=== PATIENT | male | born 1995 | race Caucasian/White ===

== ENCOUNTER 2018-02-02 23:27 | Emergency (ER) | payer OTHER ==
[2018-02-02 23:38] VITALS: BP 135/93; PULSE 98; TEMP 100.3
[2018-02-02] MEDS ORDERED: IBUPROFEN 600 MG TABLET (FP) PO ONE (23:46)
--- NOTE | 2018-02-02 23:52 | PDOC ---
History of Present Illness - General Chief Complaint: Cold Symptoms Stated Complaint: COLD SYMPTOMS Time Seen by Provider: 02/02/18 23:40 History Source: Patient Exam Limitations: No Limitations - History of Present Illness Initial Comments: 02/02/18 23:46 22-year-old male without significant past medical history presents emergency Department with 3 days of fevers, sore throat and body aches. Patient states she 's been taking [id number] medications with minimal relief of symptoms. Patient states his last dose of any medication was DayQuil this morning. Patient denies any coughing, chest pain, shortness of breath, abdominal pain, nausea, vomiting. Past History - Past Medical History Allergies/Adverse Reactions: Allergies Allergy/AdvReac Type Severity Reaction Status Date / Time No Known Allergies Allergy Verified 02/02/18 23:36 Home Medications: Ambulatory Orders NK [No Known Home Medication] 04/27/15 - Immunization History Immunization Up to Date: Yes - Suicide/Smoking/Psychosocial Hx Smoking History: Never smoked Have you smoked in the past 12 months: No Information on smoking cessation initiated: No Hx Alcohol Use: No Drug/Substance Use Hx: No Substance Use Type: None Review of Systems - Review of Systems Able to Perform ROS?: Yes Is the patient limited [place] proficient: No Constitutional: Yes: See HPI HEENTM: Yes: See HPI Respiratory: No: Symptoms reported Cardiac (ROS): No: Symptoms Reported ABD/GI: No: Symptoms Reported : No: Symptoms Reported Musculoskeletal: Yes: See HPI Integumentary: No: Symptoms Reported Neurological: No: Symptoms reported *Physical Exam - Vital Signs Last Vital Signs Temp Pulse Resp BP Pulse Ox 100.3 F H 98 H 20 135/93 99 02/02/18 23:36 02/02/18 23:36 02/02/18 23:36 02/02/18 23:36 02/02/18 23:36 - Physical Exam General Appearance: Yes: Appropriately Dressed. No: Apparent Distress HEENT: positive: EOMI, ADIS, Normal Voice, TMs Normal, Pharyngeal Erythema, Tonsillar Erythema Neck: positive: Trachea midline, Supple Respiratory/Chest: positive: Lungs Clear, Normal Breath Sounds. negative: Respiratory Distress, Accessory Muscle Use Cardiovascular: positive: Regular Rhythm, Regular Rate. negative: Murmur Gastrointestinal/Abdominal: positive: Normal Bowel Sounds, Soft. negative: Tender Neurologic: positive: Alert, Normal Response Medical Decision Making - Medical Decision Making 02/02/18 23:50 A/P: 22-year-old male with 3 days of upper respiratory symptoms Oropharynx with tonsillar erythema present. No exudates noted Cobblestoning noted in the posterior oropharynx No anterior or posterior cervical lymphadenopathy present Lungs clear to auscultation bilaterally Most likely this a viral pharyngitis. I will send rapid strep to rule out bacterial etiology. Motrin Reassess 02/03/18 00:17 Rapid strep testing is negative. I will discharge the patient home with some the medic treatment for a viral pharyngitis. I discussed the physical exam findings, ancillary test results and final diagnoses with the patient. I answered all of the patient's questions. The patient was satisfied with the care received and felt comfortable with the discharge plan and treatment plan. The patient will call his doctor within 96 hours to arrange follow-up and will return to the Emergency Department with any new, persistent or worsening symptoms. *DC/Admit/Observation/Transfer Diagnosis at time of Disposition: Pharyngitis Qualifiers: Pharyngitis/tonsillitis etiology: unspecified etiology Qualified Code(s): J02.9 - Acute pharyngitis, unspecified - Discharge Dispostion Disposition: HOME Condition at time of disposition: Stable Decision to Admit order: No - Referrals - Patient Instructions Additional Instructions: Rest, drink lots of fluids: Teas, water, soups, Pedialyte Saltwater gargles Steamy showers/seem to face break up mucus Avoid contact with others until fevers and cough resolved Lots of handwashing and good hygiene Continue [id number] medications for symptomatic relief Tylenol or Motrin for fever and pain Followup with private physician in one to 2 days as needed Return to emergency department for worsened symptoms, fevers, dehydration - Post Discharge Activity
[2018-02-03] MEDS ORDERED: IBUPROFEN 600 MG TABLET (FP) PO ONE (00:26)
== END 2018-02-03 00:31 | disposition home or self-care (01) ==
LOC: JER 23:27
DX: J02.9 Acute pharyngitis, unspecified (principal)
CPT/HCPCS: 87070; 87430; 99281-25; 99282-25

== ENCOUNTER 2018-06-14 20:55 | Emergency (ER) | payer OTHER ==
[2018-06-14 21:19] VITALS: BP 107/74; PULSE 132; TEMP 99.4; BMI 32.9
[2018-06-14] MEDS ORDERED: ACETAMINOPHEN 500 MG TABLET (FP) PO ONE (21:56)
[2018-06-14] MEDS ORDERED: ACETAMINOPHEN 500 MG TABLET (FP) ONE (21:59)
--- NOTE | 2018-06-14 22:30 | PDOC ---
History of Present Illness - General Chief Complaint: Cold Symptoms Stated Complaint: fever Time Seen by Provider: 06/14/18 21:53 - History of Present Illness Initial Comments: 06/14/18 22:29 23-year-old male without comorbidities presents for evaluation of fever and body aches times one day. He states symptoms started last night. He has not taken anything for his body aches or subjective fever. Past History - Past Medical History Allergies/Adverse Reactions: Allergies Allergy/AdvReac Type Severity Reaction Status Date / Time No Known Allergies Allergy Verified 06/14/18 21:19 Home Medications: Ambulatory Orders NK [No Known Home Medication] 04/27/15 COPD: No - Immunization History Immunization Up to Date: Yes - Suicide/Smoking/Psychosocial Hx Smoking History: Never smoked Have you smoked in the past 12 months: No Information on smoking cessation initiated: No Hx Alcohol Use: No Drug/Substance Use Hx: No Substance Use Type: None Review of Systems - Review of Systems Constitutional: Yes: Fever, Malaise All Other Systems: Reviewed and Negative *Physical Exam - Vital Signs Last Vital Signs Temp Pulse Resp BP Pulse Ox 99.4 F 132 H 16 107/74 100 06/14/18 21:17 06/14/18 21:17 06/14/18 21:17 06/14/18 21:17 06/14/18 21:17 - Physical Exam Comments: 06/14/18 22:30 HEAD: NC/AT EYES: Conjuntiva clear Ears: Canals and TM's normal NOSE: No d/c THROAT: Moist mucous membrances, oral pharanx clear, uvula midline NECK: Supple without adenopathy CARDIAC: S1 S2 LUNGS: CTA Full and Equal breath sounds ABDOMEN: Soft NT ND MS: Full ROM in all joints without edema NEUROLOGIC: No gross sensory or motor deficits, NVID SKIN: Normal color and temperature no lesions or rashes ED Treatment Course - Medications Given in the ED: ED Medications Discontinued Medications Generic Name Dose Route Start Last Admin Trade Name Vladislavq PRN Reason Stop Dose Admin Acetaminophen 1,000 mg 06/14/18 21:56 06/14/18 22:00 Tylenol - PO 06/14/18 21:57 1,000 mg ONCE ONE Administration *DC/Admit/Observation/Transfer Diagnosis at time of Disposition: Viral illness - Discharge Dispostion Disposition: HOME Condition at time of disposition: Stable Decision to Admit order: No - Referrals Referrals: Wade Norris MD [Primary Care Provider] - - Patient Instructions Printed Discharge Instructions: DI for Viral Upper Respiratory Infection -- Adult Additional Instructions: Return to the emergency room should symptoms worsen ago unresolved. Please take Tylenol and Motrin as directed for pain and fever follow-up with your primary care physician in one to 2 days for further evaluation and treatment options. - Post Discharge Activity
== END 2018-06-14 23:01 | disposition home or self-care (01) ==
LOC: JERFT 20:55
DX: J06.9 Acute upper respiratory infection, unspecified (principal); B97.89 Other viral agents as the cause of diseases classified elsewhere
CPT/HCPCS: 87804; 99281-25

== ENCOUNTER 2018-11-28 20:44 | Emergency (ER) | payer OTHER ==
[2018-11-28 20:54] VITALS: BP 124/82; PULSE 74; TEMP 99; BMI 31.3
--- NOTE | 2018-11-28 22:25 | PDOC ---
History of Present Illness - General Chief Complaint: Poison [place],Poison [place] Exposure Stated Complaint: POISON [place] OVER BODY Time Seen by Provider: 11/28/18 21:46 - History of Present Illness Initial Comments: 11/28/18 22:23 23-year-old male without comorbidities presents for evaluation of an itchy rash on bilateral forearms and the right side of his belly unrelieved by calamine lotion over the last 5 days. No systemic symptoms. He states he was exposed to poison mart[place]. Past History - Past Medical History Allergies/Adverse Reactions: Allergies Allergy/AdvReac Type Severity Reaction Status Date / Time No Known Allergies Allergy Verified 06/14/18 21:19 Home Medications: Ambulatory Orders Methylprednisolone [Medrol Dose Bony] 4 mg PO ASDIR #21 tablet 11/28/18 Mometasone Furoate [Elocon] 15 gm TP BID #1 cream..g. 11/28/18 COPD: No - Immunization History Immunization Up to Date: Yes - Suicide/Smoking/Psychosocial Hx Smoking History: Never smoked Have you smoked in the past 12 months: No Hx Alcohol Use: No Drug/Substance Use Hx: No Substance Use Type: None Review of Systems - Review of Systems Constitutional: No: Fever HEENTM: No: Throat Swelling Integumentary: Yes: Pruritus, Rash *Physical Exam - Vital Signs Last Vital Signs Temp Pulse Resp BP Pulse Ox 99 F 74 20 124/82 100 11/28/18 20:52 11/28/18 20:52 11/28/18 20:52 11/28/18 20:52 11/28/18 20:52 - Physical Exam Comments: 11/28/18 22:23 HEAD: NC/AT EYES: Conjuntiva clear Ears: Canals and TM's normal NOSE: No d/c THROAT: Moist mucous membrances, oral pharanx clear, uvula midline NECK: Supple without adenopathy CARDIAC: S1 S2 LUNGS: CTA Full and Equal breath sounds ABDOMEN: Soft NT ND MS: Full ROM in all joints without edema NEUROLOGIC: No gross sensory or motor deficits, NVID SKIN: Normal color and temperature there are raised wheals and superficial excoriations with eschar formed on bilateral forearms on the anterior aspect. There are superficial wheals on the right side of the abdomen. No indication of secondary infection in either location. Medical Decision Making - Medical Decision Making 11/28/18 22:24 Medrol Dosepak and topical steroid cream low dose for contact dermatitis *DC/Admit/Observation/Transfer Diagnosis at time of Disposition: Poison [place] dermatitis - Discharge Dispostion Disposition: HOME Condition at time of disposition: Stable Decision to Admit order: No - Prescriptions Prescriptions: Methylprednisolone [Medrol Dose Bony] 4 mg PO ASDIR #21 tablet Mometasone Furoate [Elocon] 15 gm TP BID #1 cream..g. - Referrals Referrals: Wade Norris MD [Primary Care Provider] - - Patient Instructions Printed Discharge Instructions: Poison [place], Poison [place], Poison [place], Contact Dermatitis, DI for Contact Dermatitis Additional Instructions: Please take the steroid pack as directed and use the topical steroid cream for the first 3 days while on the steroid pack return to the emergency room for worsening symptoms and follow-up with your internal medicine doctor in 1-2 days for further evaluation and treatment options. - Post Discharge Activity
== END 2018-11-28 22:31 | disposition home or self-care (01) ==
LOC: JERFT 20:44
DX: L23.7 Allergic contact dermatitis due to plants, except food (principal)
CPT/HCPCS: 99281-25